=== PATIENT | female | born 1935 | race Caucasian/White ===

== ENCOUNTER 2023-05-28 13:24 | Outpatient (REF) | payer MEDICARE, SELFPAY ==
--- NOTE | ~2023-05-28 | XR_ITS ---
EXAMINATION: XR LUMBOSACRAL SPINE WITH OBLIQUES CLINICAL INFORMATION: Spinal stenosis, neurogenic claudication COMPARISON: None available. TECHNIQUE: 4 views of the lumbar spine including lateral flexion and extension views. FINDINGS: Rightward curvature of the thoracolumbar spine. Advanced degenerative changes in the imaged lower thoracic spine. 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 Advanced multilevel degenerative disc disease in the lumbar spine with multilevel hypertrophic change and loss of disc space height. Grade 1 retrolisthesis of L1 on L2 and L2 on L3. Grade 1 anterolisthesis of L4 on L5. XR/XR lumbar spine 4V min IMPRESSION: Advanced multilevel degenerative disc disease in the lumbar spine.
== END 2023-05-28 13:25 | disposition home or self-care (01) ==
LOC: HO.HOSX 13:24
PROVIDERS: Visit Provider Neurological Surgery
DX: M48.061 Spinal stenosis, lumbar region without neurogenic claudication (principal)
CPT/HCPCS: 72110; 99202

== ENCOUNTER 2023-05-28 13:24 | Outpatient (AMB) | payer MEDICARE, SELFPAY ==
--- NOTE | 2023-05-28 13:56 | A.SPINEOV_ITS ---
Intake Intake Visit Reasons: Back pain Intake Note: Ms. Cavazos is here today c/o low back pain. MRI done in [facility]. 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 The patient has had progressive pain in her left side of her low back radiating down to both legs, left greater than right, giving her significant amount of difficulty standing and walking. The symptoms completely go away when she sits down. Positive shopping cart sign. 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 Nothing seems to have helped. The symptoms have only gotten worse over time. She has tried things like Tylenol and ibuprofen without any significant relief. She saw a neurosurgeon in [facility] who told her that the risks of surgery outweigh the benefits and that she would just have to continue life in this way. She came today to see us to see if there was anything that could be done from a minimally invasive standpoint. PMH: She is a diabetic with an A1c of 7.5 and history of a knee replacement but outside of that she is otherwise healthy with no major medical problems, no cardiac disease, pulmonary disease, bleeding disorders or kidney problems Social hx: She does not smoke Medications: Januvia and glimepiride Allergies: None Physical exam: She appears younger than her stated age, strength in bilateral lower extremities is normal with absent reflexes bilaterally. Imaging review: Lumbar MRI done at 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 She has a slight retrolisthesis of L2-3 as well. She has severe stenosis at L2-3, L3-4 and L4-5. Impression: 88-year-old female from [place] who is self-referred here today for evaluation of left-sided low back pain which radiates down to both of her legs, left greater than right with claudicating symptoms. Her symptoms go away completely when she sits down. She has advanced degenerative disc disease with severe stenosis at 3 levels including L2-3, L3-4 and L4-5. We did flexion- extension x-rays here in the office and they did not show any signs of any overt instability. Dr. Govea and I discussed the option of a minimally invasive surgery which would include left-sided approach L2-3 left-sided approach L3-4 for bilateral decompression at both of these levels, and a right-sided L4-5 approach to decompress bilaterally. We are choosing the right side at this level because of the synovial cyst which may be more difficult to reach from the left side. We would expect the patient to stay 1 overnight because of the distance of travel. I did explain to the patient that the goal of the surgery would not be to treat the back pain as that would require extensive spinal fusion surgery which is not realistic at her age. The goal the surgery is to focus on her disability related to the trouble walking and pain down her legs. Pt was given risk and benefits of surgery including but not limited to infection, hematoma , nerve injury,durotomy, weakness,bowel/bladder injury, persistent pain, as well as the option to continue with conservative treatment and patient wishes to proceed with surgery. Pt is aware they should stop their motrin, aspirin 7 days prior to surgery. All questions were answered to the best of our ability. If there is anything about this patients medical history that we have overlooked or concerns you have about us proceeding with surgery we would appreciate any input you can offer. Thank you for allowing us to care for your patient. The total time spent with this visit with this patient was 60 minutes reviewing history, physical exam, lumbar MRI imaging review, and implementation of treatment plan or further diagnostic testing Loyd Govea MD,PhD [facility] Orders: Orders XR lumbar spine 4V min Today M48.061 - Spinal stenosis, lumbar region without neurogenic claudication Coding Level of Care Code New Pt Level 5 (62245) Diagnoses Lumbar stenosis M48.061
== END 2023-05-28 15:15 | disposition home or self-care (01) ==
PROVIDERS: Referring Provider Nurse Practitioner Primary Care; Visit Provider Neurological Surgery
DX: M48.061 Spinal stenosis, lumbar region without neurogenic claudication (principal)
CPT/HCPCS: 99205